=== PATIENT | male | born 1950 | race Caucasian/White ===

== ENCOUNTER 2022-01-12 05:24 | Day surgery (SDC) | payer OTHER, SELFPAY ==
[~2022-01-12] VITALS: Ht 177.8 cm; Wt 95.3 kg
[~2022-01-12 05:24] MED LIST: ASPI-1822 PO; FINA5TAB1 PO; GABA300C PO; LISI-486 PO; POTA10TA70 PO; SULF-954 PO; TAMS0.4C96 PO
[2022-01-12] MEDS ORDERED: fentaNYL citrate 0.05 MG/ML VIAL ONE (07:24)
[2022-01-12] MEDS ORDERED: MIDAZOLAM 2 MG/2 ML VIAL ONE (07:24)
[2022-01-12] MEDS ORDERED: LIDOCAINE 2% 100 MG/5 ML SYR IVP ONE (07:26)
[2022-01-12] MEDS ORDERED: BUPIVACAINE-MPF/EPI 0.5% 30 ML VIAL INJ ONE (07:59)
[2022-01-12] MEDS ORDERED: LIDOCAINE 1% 500 MG/50 ML VIAL ONE (07:59)
[2022-01-12] MEDS ORDERED: GELATIN SPONGE 100 1 SPG TP ONE (07:59)
[2022-01-12] MEDS ORDERED: SUGAMMADEX SODIUM 200 MG/2 ML VIAL IV ONE (08:06)
[2022-01-12] MEDS ORDERED: SUCCINYLCHOLINE CHLORIDE 200 MG/10 ML VIAL IVP ONE (08:17)
[2022-01-12] MEDS ORDERED: ROCURONIUM 50 MG/5 ML VIAL IV ONE (08:17)
[2022-01-12] MEDS ORDERED: DEXAMETHASONE 4 MG/ML VIAL ONE ×2 (08:17)
[2022-01-12] MEDS ORDERED: METOCLOPRAMIDE 10 MG/2 ML INJ VIAL ONE (08:18)
[2022-01-12] MEDS ORDERED: ONDANSETRON 4 MG/2 ML VIAL ONE (08:18)
[2022-01-12] MEDS ORDERED: LACTATED RINGERS 1,000 ML IV SCH (09:20)
[2022-01-12] MEDS ORDERED: HYDROmorphone 1 MG/ML AMP IVP PRN (09:20)
[2022-01-12] MEDS ORDERED: ONDANSETRON 4 MG/2 ML VIAL IVP PRN (09:20)
== END 2022-01-12 11:30 | disposition home or self-care (01) ==
LOC: MDS 05:24 → MMU 05:25 → MDS 11:30
PROVIDERS: ATTEND Surgery
DX: K64.8 Other hemorrhoids (principal); K62.6 Ulcer of anus and rectum; K64.9 Unspecified hemorrhoids; I10 Essential (primary) hypertension; F32.9 Major depressive disorder, single episode, unspecified; Z86.73 Personal history of transient ischemic attack (TIA), and cerebral infarction without residual deficits; Z79.899 Other long term (current) drug therapy
CPT/HCPCS: 46250; 46606; 71045; 87426; J0330; J1100; J2001; J2250; J2405; J2765; J3010; J3490